=== PATIENT | female | born 1980 | race Two or more races ===

== ENCOUNTER 2016-05-14 21:06 | Emergency (ER) | payer OTHER ==
[2016-05-14 22:49] VITALS: BP 123/64; PULSE 75; RESP 14; TEMP 97.7; O2SAT 97
--- NOTE | 2016-05-14 23:01 | UCPHY ---
H & P Patient Type: Established Chief Complaint Nursing Narrative: pressure in vagina from retention of tampon HPI/ROS: CHIEF COMPLAINT: Stuck tampon HISTORY OF PRESENT ILLNESS: The patient is a 35 year old female presenting with a tampon stuck in her vagina. The patient states she was only able to pull out half of the tampon today. She has a sensation of fullness or pressure in the vagina that she attributes to retained tampon. No fever, No vaginal discharge. REVIEW OF SYSTEMS: A ten point review of systems was performed and is negative with the exception of the items mentioned in the HPI. Source: Patient - Personal History Current Tetanus Diphtheria and Acellular Pertussis (TDAP): Yes - Medical/Surgical History Hx Asthma: Yes Hx Chronic Respiratory Disease: No Hx Diabetes: No Hx Cardiac Disease: No Hx Renal Disease: No Hx Cirrhosis: No Hx Alcoholism: No Hx HIV/AIDS: No Hx Splenectomy or Spleen Trauma: No Other PMH: DVT - Family History Significant Family History: No pertinent family hx - Social History Smoking Status: Never smoked Additional Social History: . 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 - Physical Exam Exam: General Appearance: Alert. Vital signs reviewed. Focused exam performed. Respiratory: Lungs are clear to auscultation; no wheezes. Cardiovascular: Regular rate and rhythm; no murmur, rub, or gallop. Gastrointestinal: Abdomen is soft and nontender, no masses or organomegaly, bowel sounds normal. Pelvic exam: Bimanual and speculum exam performed. Uterus is nontender and normal in size. Cervix is without cervical motion tenderness. There is no discharge noted. I do not find a retained foreign body. Skin: Warm and dry, no rashes on exposed skin, normal color. Back: Nontender to palpation over the thoracolumbar spine. No CVAT. Neurological: Alert and oriented. Moving all four extremities easily and equally. Psychiatric: Normal affect. Constitutional: Initial Vital Signs Temperature (C) 36.5 C 05/14/16 22:44 Heart Rate 75 05/14/16 22:44 Respiratory Rate 14 05/14/16 22:44 Blood Pressure 123/64 H 05/14/16 22:44 O2 Sat (%) 97 05/14/16 22:44 O2 Delivery Mode Room Air Allergies/Adverse Reactions: ibuprofen Allergy (Intermediate, Verified 05/14/16 22:41) Rash Home Medications: Medication Instructions Recorded NK [No Known Home Meds] 05/14/16 Medical Decision Making ED Course/Re-evaluation: Patient is that she has part of a tampon stuck in her vagina. She brings a tampon with who that is missing the upper portion. Pleural pelvic examination was performed and I do not find a retained tampon. I have advised her to check again if she continues with a sensation of fullness or foreign body. She understands the signs of infection that should prompt her to be re-evaluated. I do not see any signs of infection. Departure - Departure Disposition: Home, Routine, Self-Care Clinical Impression: Vaginal pain Condition: Good Instructions: Vaginal Foreign Body (ED) Additional Instructions: You have been referred to an [facility], if needed. As you know, I did not find any parts of a retained tampon in your vagina. If you continue with discomfort I recommend that you be reexamined tomorrow. If you have fever, pain, any new or concerning symptoms please be examined immediately. Referrals: Magalie Dumont MD [Medical Doctor] - As per Instructions - PQRS PQRS Measurement: Does not apply Report Scribed for: Brea Earl Report Scribed by: Lynnette Kyle Date of Report: 05/14/16 Time of Report: 23:10 Physician Review and Approval Statement: 05/14/16 23:00 Portions of this note were transcribed by the medical typist. I, Dr. Brea Earl, personally performed the history, physical exam, and medical decision- making; and confirmed the accuracy of the information in the transcribed note.
== END 2016-05-14 23:52 | disposition home or self-care (01) ==
LOC: CED 21:06
DX: R10.2 Pelvic and perineal pain (principal)
CPT/HCPCS: G0463-PO